=== PATIENT | male | born 1990 | race Hispanic/Latino ===

== ENCOUNTER 2024-10-14 12:00 | Emergency (ER) | payer SELFPAY ==
[~2024-10-14] VITALS: Ht 170.2 cm; Wt 117.9 kg
[~2024-10-14 12:00] MED LIST: DOXYCYCLINE HY100 MG PO; IBUPROFEN400 MG PO
[2024-10-14 12:17] VITALS: PULSE 72; RESP 18; TEMP 98.4
[2024-10-14 12:42] VITALS: BP 127/68; PULSE 63; O2SAT 98
[2024-10-14] MEDS ORDERED: AMOX TR-K CLV1 EAC2 PO (12:45)
== END 2024-10-14 12:52 | disposition home or self-care (01) ==
LOC: ER 12:36
DX: H72.92 Unspecified perforation of tympanic membrane, left ear (principal); R51.9 Headache, unspecified; R05.9 Cough, unspecified; R09.81 Nasal congestion; F17.210 Nicotine dependence, cigarettes, uncomplicated
CPT/HCPCS: 99282